=== PATIENT | male | born 1965 | race Caucasian/White ===

== ENCOUNTER 2016-07-06 11:07 | Emergency (ER) | payer BC ==
[~2016-07-06] VITALS: Ht 177.8 cm; Wt 108.9 kg
[~2016-07-06 11:07] MED LIST: CEPH-507 PO; HUM10VIA2; IBUPROFEN PRN; MULT1TAB63
--- NOTE | 2016-07-06 11:18 | ED Chest Pain ---
General Stated Complaint: RAPID HEART RATE Source: patient Exam Limitations: no limitations History of Present Illness Time seen by provider: 11:16 Initial Comments To ER with rapid heart rate. He was sent here from urgent care. States that this began about 25 minutes ago when he bent over and stood up quickly. He has a history of SVT years ago and was admitted seem by Dr. Montes. Told that it may or may not happen again. This is his first recurrent episode. States his blood sugar was high today in the 360 range she is a diabetic but this is unusual for him. He took 5 baby aspirin at home prior to arrival. Timing/Duration: intermittent Severity/Quality: moderate Location: central Radiation: no radiation Prior CP/Workup: no prior chest pain ASA po DEVELOPMENT VICE PRESIDENT: Yes NTG SL DEVELOPMENT VICE PRESIDENT: No Allergies and Home Medications Allergies Coded Allergies: No Known Drug Allergies (Verified Allergy, Unknown, 01/05/07) Home Medications Insulin Aspart 300 Units/3 Ml Solution, #30 (Reported) Insulin Glargine,Hum.rec.anlog 100 Unit/1 Ml Insuln.pen, #15 (Reported) Review of Systems Constitutional: see HPI EENTM: No Symptoms Reported Respiratory: See HPI, Shortness of Air Cardiovascular: See HPI, Denies Chest Pain, Palpitations Gastrointestinal: No Symptoms Reported Genitourinary: No Symptoms Reported Musculoskeletal: no symptoms reported Skin: no symptoms reported Psychiatric/Neurological: No Symptoms Reported Endocrine: No Symptoms Reported Past Dwgkrgq-Lfnxxy-Clltcs Hx Immunizations Up To Date Tetanus Booster (TDap): More than 5yrs Surgeries HX Surgeries: Yes Surgeries: Adenoidectomy, Orthopedic, Tonsillectomy Respiratory Hx Respiratory Disorders: No Cardiovascular Hx Cardiac Disorders: No Neurological Hx Neurological Disorders: No Reproductive System Hx Reproductive Disorders: No Genitourinary Hx Genitourinary Disorders: No Gastrointestinal Hx Gastrointestinal Disorders: No Endocrine Hx Endocrine Disorders: Yes Endocrine Disorders: Diabetes, Insulin dep HEENT HX ENT Disorders: No Psychosocial Hx Psychiatric Problems: No Blood Transfusions Hx Blood Disorders: No Family Medical History Significant Family History: No Pertinent Family Hx Physical Exam Vital Signs Vital Sign - Last 12Hours 07/06/16 07/06/16 11:18 11:22 Temp 98.2 Pulse 93 Resp 18 B/P (MAP) 116/83 Pulse Ox 95 O2 Delivery Nasal Cannula O2 Flow Rate 2.00 Capillary Refill : General Appearance: No Apparent Distress, WD/WN HEENT: PERRL/EOMI, TMs Normal Respiratory: Normal Breath Sounds, No Accessory Muscle Use, No Respiratory Distress Cardiovascular: Normal Peripheral Pulses, Tachycardia (Initial heart rate 200. Given 6 mg of adenosine and slowed to sinus tach 110-120.) Gastrointestinal: Normal Bowel Sounds, Non Tender, Soft Extremity: Normal Capillary Refill, Normal Inspection Neurologic/Psychiatric: Alert, Oriented x3 Skin: Normal Color, Warm/Dry Progress/Results/Core Measures Results/Orders Lab Results Laboratory Tests Test 07/06/16 11:15 07/06/16 12:05 Range/Units White Blood Count 6.7 4.3-11.0 10^3/uL Red Blood Count 4.85 4.35-5.85 10^6/uL Hemoglobin 14.2 13.3-17.7 G/DL Hematocrit 42 40-54 % Mean Corpuscular Volume 87 80-99 FL Mean Corpuscular Hemoglobin 29 25-34 PG Mean Corpuscular Hemoglobin Concent 34 32-36 G/DL Red Cell Distribution Width 13.2 10.0-14.5 % Platelet Count 239 130-400 10^3/uL Mean Platelet Volume 10.7 H 7.4-10.4 FL Neutrophils (%) (Auto) 65 42-75 % Lymphocytes (%) (Auto) 26 12-44 % Monocytes (%) (Auto) 7 0-12 % Eosinophils (%) (Auto) 2 0-10 % Basophils (%) (Auto) 1 0-10 % Neutrophils # (Auto) 4.3 1.8-7.8 X 10^3 Lymphocytes # (Auto) 1.7 1.0-4.0 X 10^3 Monocytes # (Auto) 0.5 0.0-1.0 X 10^3 Eosinophils # (Auto) 0.1 0.0-0.3 10^3/uL Basophils # (Auto) 0.1 0.0-0.1 10^3/uL Prothrombin Time 12.4 12.2-14.7 SEC INR Comment 1.0 0.8-1.4 Activated Partial Thromboplast Time 27 24-35 SEC Sodium Level 135 135-145 MMOL/L Potassium Level 4.0 3.6-5.0 MMOL/L Chloride Level 102 98-107 MMOL/L Carbon Dioxide Level 24 21-32 MMOL/L Anion Gap 9 5-14 MMOL/L Blood Urea Nitrogen 12 7-18 MG/DL Creatinine 1.27 0.60-1.30 MG/DL Estimat Glomerular Filtration Rate 60 BUN/Creatinine Ratio 9 Glucose Level 436 *H 70-105 MG/DL Calcium Level 8.7 8.5-10.1 MG/DL Magnesium Level 2.2 1.8-2.4 MG/DL Total Bilirubin 0.6 0.1-1.0 MG/DL Aspartate Amino Transf (AST/SGOT) 18 5-34 U/L Alanine Aminotransferase (ALT/SGPT) 15 0-55 U/L Alkaline Phosphatase 47 40-136 U/L Myoglobin 61.3 10.0-92.0 NG/ML Troponin I < 0.30 <0.30 NG/ML Total Protein 6.6 6.4-8.2 G/DL Albumin 4.0 3.2-4.5 G/DL Glucometer 322 H 70-110 MG/DL My Orders Orders - RADHA GREEN APRN Cbc With Automated Diff (07/06/16 11:16) Magnesium (07/06/16 11:16) Chest 1 View, Ap/Pa Only (07/06/16 11:16) Ekg Tracing (07/06/16 11:16) Cardiac Profile 1 (07/06/16 11:16) Comprehensive Metabolic Panel (07/06/16 11:16) Myoglobin Serum (07/06/16 11:16) Protime With Inr (07/06/16 11:16) Partial Thromboplastin Time (07/06/16 11:16) O2 (07/06/16 11:16) Monitor-Rhythm Ecg Trace Only (07/06/16 11:16) Lipid Panel (07/07/16 06:00) Saline Lock/Iv-Start (07/06/16 11:16) Adenosine Injection (Adenocard Injection (07/06/16 11:30) Ns Iv 1000 Ml (Sodium Chloride 0.9%) (07/06/16 11:30) Accucheck Stat ONCE (07/06/16 12:03) Medications Given in ED Current Medications Medications Dose Ordered Sig/Kyaw Route Start Time Stop Time Status Last Admin Dose Admin Adenosine 6 mg ONCE ONCE IV 07/06/16 11:30 07/06/16 11:31 DC 07/06/16 11:10 6 MG Vital Signs/I&O Vital Sign - Last 12Hours 07/06/16 07/06/16 11:18 11:22 Temp 98.2 Pulse 93 Resp 18 B/P (MAP) 116/83 Pulse Ox 95 98 O2 Delivery Nasal Cannula O2 Flow Rate 2.00 Departure Communication Progress Notes 1230-sent the EKG telephonically to Dr. Rodriguez and follow-up in the outpatient setting next week. Patient states that he feels much better at this time, heart rate remains in the 90s sinus. Blood pressure adequate. We will discharged home. Impression Impression: Primary Impression: SVT (supraventricular tachycardia) Disposition: HOME, SELF-CARE Condition: Stable Departure-Patient Inst. Decision time for Depature: 12:29 Referrals: Michael RODRIGUEZ MD, FLOYD R MD (PCP/Family) Primary Care Physician Patient Instructions: Supraventricular Tachycardia (SVT) Add. Discharge Instructions: 1. Return to ER for any recurrent symptoms 2. Keep tight control of your blood sugars trying to keep him below 200 3. Follow-up with Dr. Rodriguez next week. Call either today or on Saturday to make an appointment to be seen. I faxed your visit information to his office. Copy Copies To 1: Michael RODRIGUEZ MD, PETER J APRN July 06, 2016 11:18
[2016-07-06] MEDS ORDERED: INSU100I10 (11:22)
[2016-07-06] MEDS ORDERED: INSU100I14 (11:22)
[2016-07-06] MEDS ORDERED: ADENOSINE 6 MG/2 ML (ADENOCARD) VIAL IV ONE (11:30)
[2016-07-06] MEDS ORDERED: NS IV 1000 ML 1,000 ML IV SCH (11:30)
[2016-07-06 11:33] LABS: BASOPHILS # (AUTO) 0.1 10^3/uL (0.0-0.1); BASOPHILS % (AUTO) 1 % (0-10); EOSINOPHILS # (AUTO) 0.1 10^3/uL (0.0-0.3); EOSINOPHILS % (AUTO) 2 % (0-10); LYMPHOCYTES # (AUTO) 1.7 X 10^3 (1.0-4.0); LYMPHOCYTES % (AUTO) 26 % (12-44); MEAN CORPUSCULAR HEMOGLOBIN 29 PG (25-34); MEAN CORPUSCULAR HGB CONC 34 G/DL (32-36); MEAN CORPUSCULAR VOLUME 87 FL (80-99); MEAN PLATELET VOLUME 10.7 FL (7.4-10.4); MONOCYTES # (AUTO) 0.5 X 10^3 (0.0-1.0); MONOCYTES % (AUTO) 7 % (0-12); NEUTROPHILS # (AUTO) 4.3 X 10^3 (1.8-7.8); NEUTROPHILS % (AUTO) 65 % (42-75); PLATELET COUNT 239 10^3/uL (130-400); RED BLOOD COUNT 4.85 10^6/uL (4.35-5.85); RED CELL DISTRIBUTION WIDTH 13.2 % (10.0-14.5); WHITE BLOOD COUNT 6.7 10^3/uL (4.3-11.0)
--- NOTE | 2016-07-06 11:35 | Diagnostic Imaging Report ---
INDICATION: Tachycardia. Portable chest 11:24 AM. Heart size and pulmonary vascularity are normal. Lungs are clear. There are no effusions or pneumothoraces. IMPRESSION: Negative chest. Dictated by: Dictated on workstation # [id number]
[2016-07-06 11:43] LABS: PROTHROMBIN TIME PATIENT 12.4 SEC (12.2-14.7)
[2016-07-06 11:55] LABS: ALANINE AMINOTRANSFERASE 15 U/L (0-55); ANION GAP 9 MMOL/L (5-14); ASPARTATE AMINO TRANSFERASE 18 U/L (5-34); BILIRUBIN,TOTAL 0.6 MG/DL (0.1-1.0); BLOOD UREA NITROGEN 12 MG/DL (7-18); BUN/CREATININE RATIO 9; CALCIUM 8.7 MG/DL (8.5-10.1); CARBON DIOXIDE 24 MMOL/L (21-32); CHLORIDE 102 MMOL/L (98-107); CREATININE SERUM 1.27 MG/DL (0.60-1.30); GFR ESTIMATED 60; MAGNESIUM 2.2 MG/DL (1.8-2.4); SODIUM 135 MMOL/L (135-145); TOTAL PROTEIN 6.6 G/DL (6.4-8.2)
[2016-07-06 12:03] LABS: GLUCOSE 436 MG/DL (70-105)
[2016-07-06 12:04] LABS: MYOGLOBIN SERUM 61.3 NG/ML (10.0-92.0)
[2016-07-06 12:33] VITALS: BP 124/85
== END 2016-07-06 12:37 | disposition home or self-care (01) ==
LOC: EDUNIT# 11:07 → ER 11:10
DX: I47.1 Supraventricular tachycardia (principal); E11.65 Type 2 diabetes mellitus with hyperglycemia; Z79.4 Long term (current) use of insulin
CPT/HCPCS: 36415; 71010; 80053; 82962; 83735; 83874; 84484; 85025; 85610; 85730; 93005; 93041; 96361; 96374

== ENCOUNTER → 2016-07-27 | Outpatient (CLI) | payer BC ==
[~2016-07-27] MED LIST changes: +INSU100I10; +INSU100I14
== END ==
LOC: CARD 08:55
PROVIDERS: ATTEND Internal Medicine Interventional Cardiology
DX: I47.1 Supraventricular tachycardia (principal); E11.9 Type 2 diabetes mellitus without complications; R06.02 Shortness of breath

== ENCOUNTER 2016-08-30 00:19 | Emergency (ER) | payer BC ==
[~2016-08-30] VITALS: Ht 177.8 cm; Wt 102.1 kg
[~2016-08-30 00:19] MED LIST changes: +LACTATED RINGERS 1,000 ML IV ONE
[2016-08-30] MEDS ORDERED: LACTATED RINGERS 1,000 ML IV ONE (00:28)
--- NOTE | 2016-08-30 00:39 | ED General ---
General Chief Complaint: Glucose Problems Stated Complaint: HYPOGLYCEMIA Source of Information: Patient Exam Limitations: No Limitations History of Present Illness Time Seen by Provider: 00:20 Initial Comments Here with report of low blood sugar at home tonight. Apparently he was having altered mentation and EMS was called. noted that his blood sugar was 30. On EMS arrival it was 24. IV is established by EMS and one amp of D50 was given. He did get a little better. He was able to eat at home but was still a little off with respect to mentation and patient was brought to the ER. He is doing much better currently. Blood sugar apparently had been up as high as 200s but was 110 on EMS arrival and 81 on our check here. Patient denies any recent illness. 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 States he was riding a tractor most of the time. Does state that he drank water and iced tea. He did eat tonight. He used his normal dosing of Lantus at 22 units in the evening. Usually has good control of his blood sugars and has not had an incident where he had blood sugar this low previously. He has been on insulin for 12 years. Timing/Duration: 1-3 Hours Severity: Moderate Modifying Factors: improves with Eating, improves with Medication Associated Systoms: No Chest Pain, No Fever/Chills, No Nausea/Vomiting, No Shortness of Air Allergies and Home Medications Allergies Coded Allergies: No Known Drug Allergies (Verified , 08/30/16) Home Medications Insulin Aspart 300 Units/3 Ml Solution, #30 (Reported) Insulin Glargine,Hum.rec.anlog 100 Unit/1 Ml Insuln.pen, #15 (Reported) Constitutional: see HPI, No chills, diaphoresis (with incident), No fever, weakness (with incident) EENTM: no symptoms reported Respiratory: no symptoms reported Cardiovascular: no symptoms reported Gastrointestinal: no symptoms reported, No nausea, No vomiting Genitourinary: no symptoms reported Musculoskeletal: muscle pain, muscle cramps (right leg) Skin: no symptoms reported Psychiatric/Neurological: See HPI All Other Systems Reviewed Negative Unless Noted: Yes Past Rbskrbc-Xxcckq-Rdmxca Hx Patient Social History Alcohol Use: Denies Use Recreational Drug Use: No Smoking Status: Never a Smoker Recent Foreign Travel: No Contact w/Someone Who Travel: No Recent Hopitalizations: No Immunizations Up To Date Tetanus Booster (TDap): More than 5yrs Surgeries HX Surgeries: Yes Surgeries: Adenoidectomy, Orthopedic, Tonsillectomy Respiratory Hx Respiratory Disorders: No Cardiovascular Hx Cardiac Disorders: No Neurological Hx Neurological Disorders: No Reproductive System Hx Reproductive Disorders: No Genitourinary Hx Genitourinary Disorders: No Gastrointestinal Hx Gastrointestinal Disorders: No Endocrine Hx Endocrine Disorders: Yes Endocrine Disorders: Diabetes, Insulin dep HEENT HX ENT Disorders: No Psychosocial Hx Psychiatric Problems: No Blood Transfusions Hx Blood Disorders: No Reviewed Nursing Assessment Reviewed/Agree w Nursing PMH: Yes Family Medical History Significant Family History: No Pertinent Family Hx Physical Exam Vital Signs Vital Sign - Last 12Hours 08/30/16 00:38 Temp 97.4 Pulse 89 Resp 14 B/P (MAP) 151/89 Pulse Ox 96 O2 Delivery Room Air Capillary Refill : General Appearance: No Apparent Distress, WD/WN HEENT: PERRL/EOMI, Pharynx Normal Neck: Non Tender, Supple Respiratory: Lungs Clear, Normal Breath Sounds Cardiovascular: Regular Rate, Rhythm, No Murmur Gastrointestinal: Non Tender, Soft Extremity: Non Tender, No Calf Tenderness Neurologic/Psychiatric: Alert, Oriented x3, No Motor/Sensory Deficits Skin: Normal Color, Warm/Dry Progress/Results/Core Measures Results/Orders Lab Results My Orders Medications Given in ED Vital Signs/I&O Progress Note : Progress Note Seen and evaluated. IV by EMS. Labs ordered. LR 1 L bolus. Patient given milk and food as blood sugar was 81 here. Monitor patient. 0120: Blood sugar 121 and he is feeling much better. Fluids are continuing. Labs would indicate that there is dehydration involved. 0144: Blood sugar 131. Patient improved. Discharged home with return precautions. Patient verbalize understanding instructions and agreement with plan. Departure Impression Impression: Primary Impression: Hypoglycemia associated with diabetes Additional Impression: Dehydration Disposition: 01 HOME, SELF-CARE Condition: Improved Departure-Patient Inst. Decision time for Depature: 01:29 Referrals: ALTHEA BECK MD (PCP/Family) Primary Care Physician Patient Instructions: Dehydration, Adult (DC), HYPOGLYCEMIA Add. Discharge Instructions: All discharge instructions reviewed with patient and/or family. Voiced understanding. Monitor your glucose closely today. Eat a normal diet. Drink plenty of fluids. Get some rest. Avoid the heat. Follow-up with your Dr. in a few days for recheck. Return for worse pain, fever, vomiting, weakness, breathing problems or other concerns as needed. JAE ANDRES MD Aug 30, 2016 00:39
[2016-08-30 00:40] LABS: BASOPHILS % (AUTO) 1 % (0-10); EOSINOPHILS # (AUTO) 0.3 10^3/uL (0.0-0.3); EOSINOPHILS % (AUTO) 4 % (0-10); LYMPHOCYTES % (AUTO) 25 % (12-44); MEAN CORPUSCULAR HEMOGLOBIN 29 PG (25-34); MEAN CORPUSCULAR HGB CONC 33 G/DL (32-36); MEAN CORPUSCULAR VOLUME 88 FL (80-99); MEAN PLATELET VOLUME 10.3 FL (7.4-10.4); MONOCYTES # (AUTO) 0.5 X 10^3 (0.0-1.0); MONOCYTES % (AUTO) 6 % (0-12); NEUTROPHILS % (AUTO) 65 % (42-75); PLATELET COUNT 235 10^3/uL (130-400); RED BLOOD COUNT 4.75 10^6/uL (4.35-5.85); RED CELL DISTRIBUTION WIDTH 13.1 % (10.0-14.5); WHITE BLOOD COUNT 7.7 10^3/uL (4.3-11.0)
[2016-08-30 01:00] LABS: ALANINE AMINOTRANSFERASE 14 U/L (0-55); ALBUMIN 4.2 GM/DL (3.2-4.5); ANION GAP 13 MMOL/L (5-14); ASPARTATE AMINO TRANSFERASE 20 U/L (5-34); BILIRUBIN,TOTAL 0.5 MG/DL (0.1-1.0); BLOOD UREA NITROGEN 20 MG/DL (7-18); BUN/CREATININE RATIO 19; CALCIUM 9.6 MG/DL (8.5-10.1); CARBON DIOXIDE 24 MMOL/L (21-32); CHLORIDE 109 MMOL/L (98-107); CREATININE SERUM 1.06 MG/DL (0.60-1.30); GFR ESTIMATED > 60; GLUCOSE 61 MG/DL (70-105); POTASSIUM 3.5 MMOL/L (3.6-5.0); SODIUM 146 MMOL/L (135-145)
[2016-08-30 01:54] VITALS: BP 125/80
== END 2016-08-30 01:57 | disposition home or self-care (01) ==
LOC: EDUNIT# 00:19 → ER 00:22
DX: E11.641 Type 2 diabetes mellitus with hypoglycemia with coma (principal); E86.0 Dehydration; Z90.89 Acquired absence of other organs; Z79.84 Long term (current) use of oral hypoglycemic drugs
CPT/HCPCS: 36415; 80053; 82962; 85025; 96360

== ENCOUNTER 2016-11-08 10:55 | Outpatient (CLI) | payer BC ==
[~2016-11-08 10:55] MED LIST changes: -LACTATED RINGERS 1,000 ML IV ONE
== END 2016-11-08 11:15 | disposition home or self-care (01) ==
LOC: SLEEP 10:55
PROVIDERS: ATTEND Otolaryngology Otolaryngology/Facial Plastic Surgery
DX: G47.10 Hypersomnia, unspecified (principal); R06.83 Snoring

== ENCOUNTER 2018-05-15 08:33 | Emergency (ER) | payer BC ==
[~2018-05-15] VITALS: Ht 177.8 cm; Wt 108.0 kg
--- OUTSIDE RECORDS SUMMARY | 2018-05-15 08:38 | XMS REPORT | Continuity of Care Document ---
Author Author [facility] Organization [facility] Address Unknown Phone Unavailable Allergies Active Description Code Type Severity Reaction Onset Reported/Identified Relationship to Patient Clinical Status Yes No Known Drug Allergies [id number] Drug Allergy Unknown N/A 08/30/2016 Medications There is no data. Problems Date Dx Coded Attending Type Code Diagnosis Diagnosed By 01/25/2015 CARIDAD SHETTY Ot S01.01XA LACERATION WITHOUT FOREIGN BODY OF SCALP 01/25/2015 CARIDAD SHETTY Ot W45.8XXA OTH FOREIGN BODY OR OBJECT ENTERING THRO 01/25/2015 CARIDAD SHETTY Ot Y92.[address] IN SINGLE-FAMILY (PRIVATE) HO 01/25/2015 CARIDAD SHETTY Ot Y99.8 OTHER EXTERNAL CAUSE STATUS 01/25/2015 CARIDAD SHETTY Ot Z23 ENCOUNTER FOR IMMUNIZATION 02/01/2015 HEATHER LUNA, CHARITY Ramos Ot S01.01XD LACERATION WITHOUT FOREIGN BODY OF SCALP 07/06/2016 RADHA GREEN APRN Ot E11.65 TYPE 2 DIABETES MELLITUS WITH HYPERGLYCE 07/06/2016 RADHA GREEN APRN Ot I47.1 SUPRAVENTRICULAR TACHYCARDIA 07/06/2016 RADHA GREEN APRN Ot R00.0 TACHYCARDIA, UNSPECIFIED 07/06/2016 RADHA GREEN APRN Ot Z79.4 LONGTERM (CURRENT) USE OF INSULIN 08/24/2016 Michael RODRIGUEZ MD Ot E11.9 TYPE 2 DIABETES MELLITUS WITHOUT COMPLIC 08/24/2016 Michael RODRIGUEZ MD Ot I47.1 SUPRAVENTRICULAR TACHYCARDIA 08/24/2016 Michael RODRIGUEZ MD Ot R06.02 SHORTNESS OF BREATH 08/30/2016 Michael RODRIGUEZ MD Ot E11.9 TYPE 2 DIABETES MELLITUS WITHOUT COMPLIC 08/30/2016 Michael RODRIGUEZ MD Ot I47.1 SUPRAVENTRICULAR TACHYCARDIA 08/30/2016 Michael RODRIGUEZ MD Ot R06.02 SHORTNESS OF BREATH 08/30/2016 JAE ANDRES MD, Ot E11.641 TYPE 2 DIABETES MELLITUS WITH HYPOGLYCEM 08/30/2016 JAE ANDRES MD Ot E86.0 DEHYDRATION 08/30/2016 JAE ANDRES MD Ot R73.09 OTHER ABNORMAL GLUCOSE 08/30/2016 JAE ANDRES MD Ot Z79.84 LONGTERM (CURRENT) USE OF ORAL HYPOGLYC 08/30/2016 JAE ANDRES MD Ot Z90.89 ACQUIRED ABSENCE OF OTHER ORGANS 09/03/2016 JAE ANDRES MD, Ot E11.641 TYPE 2 DIABETES MELLITUS WITH HYPOGLYCEM 09/03/2016 JAE ANDRES MD Ot E86.0 DEHYDRATION 09/03/2016 JAE ANDRES MD Ot R73.09 OTHER ABNORMAL GLUCOSE 09/03/2016 JAE ANDRES MD Ot Z79.84 LONGTERM (CURRENT) USE OF ORAL HYPOGLYC 09/03/2016 JAE ANDRES MD Ot Z90.89 ACQUIRED ABSENCE OF OTHER ORGANS 10/26/2016 Michael RODRIGUEZ MD Ot E11.9 TYPE 2 DIABETES MELLITUS WITHOUT COMPLIC 10/26/2016 Michael RODRIGUEZ MD Ot I47.1 SUPRAVENTRICULAR TACHYCARDIA 10/26/2016 Michael RODRIGUEZ MD Ot R06.02 SHORTNESS OF BREATH 11/08/2016 JEWELS ANGULO MD P Ot G47.10 HYPERSOMNIA, UNSPECIFIED 11/08/2016 JEWELS ANGULO MD P Ot R06.83 SNORING 11/09/2016 JEWELS ANGULO MD P Ot G47.10 HYPERSOMNIA, UNSPECIFIED 11/09/2016 JEWELS ANGULO MD P Ot R06.83 SNORING 07/15/2017 Michael RODRIGUEZ MD Ot E11.9 TYPE 2 DIABETES MELLITUS WITHOUT COMPLIC 07/15/2017 Michael RODRIGUEZ MD Ot I47.1 SUPRAVENTRICULAR TACHYCARDIA 07/15/2017 Michael RODRIGUEZ MD Ot R06.02 SHORTNESS OF BREATH 03/10/2018 Michael RODRIGUEZ MD Ot E11.9 TYPE 2 DIABETES MELLITUS WITHOUT COMPLIC 03/10/2018 Michael RODRIGUEZ MD Ot I47.1 SUPRAVENTRICULAR TACHYCARDIA 03/10/2018 MICHAEL LUNA, Michael SCHULER Ot R06.02 SHORTNESS OF BREATH Procedures There is no data. Results Test Result Range Complete blood count (CBC) with automated white blood cell (WBC) differential - 07/06/16 11:15 Blood leukocytes automated count (number/volume) 6.7 10*3/uL 4.3-11.0 Blood erythrocytes automated count (number/volume) 4.85 10*6/uL 4.35-5.85 Venous blood hemoglobin measurement (mass/volume) 14.2 g/dL 13.3-17.7 Blood hematocrit (volume fraction) 42 % 40-54 Automated erythrocyte mean corpuscular volume 87 [foz_us] 80-99 Automated erythrocyte mean corpuscular hemoglobin (mass per erythrocyte) 29 pg 25-34 Automated erythrocyte mean corpuscular hemoglobin concentration measurement ( mass/volume) 34 g/dL 32-36 Automated erythrocyte distribution width ratio 13.2 % 10.0-14.5 Automated blood platelet count (count/volume) 239 10*3/uL 130-400 Automated blood platelet mean volume measurement 10.7 [foz_us] 7.4-10.4 Automated blood neutrophils/100 leukocytes 65 % 42-75 Automated blood lymphocytes/100 leukocytes 26 % 12-44 Blood monocytes/100 leukocytes 7 % 0-12 Automated blood eosinophils/100 leukocytes 2 % 0-10 Automated blood basophils/100 leukocytes 1 % 0-10 Blood neutrophils automated count (number/volume) 4.3 10*3 1.8-7.8 Blood lymphocytes automated count (number/volume) 1.7 10*3 1.0-4.0 Blood monocytes automated count (number/volume) 0.5 10*3 0.0-1.0 Automated eosinophil count 0.1 10*3/uL 0.0-0.3 Automated blood basophil count (count/volume) 0.1 10*3/uL 0.0-0.1 PT panel in platelet poor plasma by coagulation assay - 07/06/16 11:15 Prothrombin time (PT) in platelet poor plasma by coagulation assay 12.4 s 12.2-14.7 INR in platelet poor plasma or blood by coagulation assay 1.0 0.8-1.4 Activated partial thromboplastin time (aPTT) in platelet poor plasma bycoagulation assay - 07/06/16 11:15 Activated partial thromboplastin time (aPTT) in platelet poor plasma bycoagulation assay 27 s 24-35 Comprehensive metabolic panel - 07/06/16 11:15 Serum or plasma sodium measurement (moles/volume) 135 mmol/L 135-145 Serum or plasma potassium measurement (moles/volume) 4.0 mmol/L 3.6-5.0 Serum or plasma chloride measurement (moles/volume) 102 mmol/L 98-107 Carbon dioxide 24 mmol/L 21-32 Serum or plasma anion gap determination (moles/volume) 9 mmol/L 5-14 Serum or plasma urea nitrogen measurement (mass/volume) 12 mg/dL 7-18 Serum or plasma creatinine measurement (mass/volume) 1.27 mg/dL 0.60-1.30 Serum or plasma urea nitrogen/creatinine mass ratio 9 NRG Serum or plasma creatinine measurement with calculation of estimated glomerular filtration rate 60 NRG Serum or plasma glucose measurement (mass/volume) 436 mg/dL 70-105 Serum or plasma calcium measurement (mass/volume) 8.7 mg/dL 8.5-10.1 Serum or plasma total bilirubin measurement (mass/volume) 0.6 mg/dL 0.1-1.0 Serum or plasma alkaline phosphatase measurement (enzymatic activity/volume) 47 U/L 40-136 Serum or plasma aspartate aminotransferase measurement (enzymatic activity/ volume) 18 U/L 5-34 Serum or plasma alanine aminotransferase measurement (enzymatic activity/volume ) 15 U/L 0-55 Serum or plasma protein measurement (mass/volume) 6.6 g/dL 6.4-8.2 Serum or plasma albumin measurement (mass/volume) 4.0 g/dL 3.2-4.5 Magnesium - 07/06/16 11:15 Magnesium 2.2 mg/dL 1.8-2.4 Serum or plasma troponin i.cardiac measurement (mass/volume) - 07/06/16 11:15 Serum or plasma troponin i.cardiac measurement (mass/volume) < ng/ mL <0.30 Myoglobin, serum - 07/06/16 11:15 Myoglobin, serum 61.3 ng/mL 10.0-92.0 Capillary blood glucose measurement by glucometer (mass/volume) - 07/06/16 12: 05 Capillary blood glucose measurement by glucometer (mass/volume) 322 mg/dL 70-110 Capillary blood glucose measurement by glucometer (mass/volume) - 08/30/16 00: 28 Capillary blood glucose measurement by glucometer (mass/volume) 81 mg/dL 70-110 Complete blood count (CBC) with automated white blood cell (WBC) differential - 08/30/16 00:31 Blood leukocytes automated count (number/volume) 7.7 10*3/uL 4.3-11.0 Blood erythrocytes automated count (number/volume) 4.75 10*6/uL 4.35-5.85 Venous blood hemoglobin measurement (mass/volume) 13.9 g/dL 13.3-17.7 Blood hematocrit (volume fraction) 42 % 40-54 Automated erythrocyte mean corpuscular volume 88 [foz_us] 80-99 Automated erythrocyte mean corpuscular hemoglobin (mass per erythrocyte) 29 pg 25-34 Automated erythrocyte mean corpuscular hemoglobin concentration measurement ( mass/volume) 33 g/dL 32-36 Automated erythrocyte distribution width ratio 13.1 % 10.0-14.5 Automated blood platelet count (count/volume) 235 10*3/uL 130-400 Automated blood platelet mean volume measurement 10.3 [foz_us] 7.4-10.4 Automated blood neutrophils/100 leukocytes 65 % 42-75 Automated blood lymphocytes/100 leukocytes 25 % 12-44 Blood monocytes/100 leukocytes 6 % 0-12 Automated blood eosinophils/100 leukocytes 4 % 0-10 Automated blood basophils/100 leukocytes 1 % 0-10 Blood neutrophils automated count (number/volume) 5.0 10*3 1.8-7.8 Blood lymphocytes automated count (number/volume) 2.0 10*3 1.0-4.0 Blood monocytes automated count (number/volume) 0.5 10*3 0.0-1.0 Automated eosinophil count 0.3 10*3/uL 0.0-0.3 Automated blood basophil count (count/volume) 0.0 10*3/uL 0.0-0.1 Comprehensive metabolic panel - 08/30/16 00:31 Serum or plasma sodium measurement (moles/volume) 146 mmol/L 135-145 Serum or plasma potassium measurement (moles/volume) 3.5 mmol/L 3.6-5.0 Serum or plasma chloride measurement (moles/volume) 109 mmol/L 98-107 Carbon dioxide 24 mmol/L 21-32 Serum or plasma anion gap determination (moles/volume) 13 mmol/L 5-14 Serum or plasma urea nitrogen measurement (mass/volume) 20 mg/dL 7-18 Serum or plasma creatinine measurement (mass/volume) 1.06 mg/dL 0.60-1.30 Serum or plasma urea nitrogen/creatinine mass ratio 19 NRG Serum or plasma creatinine measurement with calculation of estimated glomerular filtration rate > NRG Serum or plasma glucose measurement (mass/volume) 61 mg/dL 70-105 Serum or plasma calcium measurement (mass/volume) 9.6 mg/dL 8.5-10.1 Serum or plasma total bilirubin measurement (mass/volume) 0.5 mg/dL 0.1-1.0 Serum or plasma alkaline phosphatase measurement (enzymatic activity/volume) 51 U/L 40-136 Serum or plasma aspartate aminotransferase measurement (enzymatic activity/ volume) 20 U/L 5-34 Serum or plasma alanine aminotransferase measurement (enzymatic activity/volume ) 14 U/L 0-55 Serum or plasma protein measurement (mass/volume) 7.0 g/dL 6.4-8.2 Serum or plasma albumin measurement (mass/volume) 4.2 g/dL 3.2-4.5 Capillary blood glucose measurement by glucometer (mass/volume) - 08/30/16 01: 08 Capillary blood glucose measurement by glucometer (mass/volume) 127 mg/dL 70-110 Capillary blood glucose measurement by glucometer (mass/volume) - 08/30/16 01: 44 Capillary blood glucose measurement by glucometer (mass/volume) 133 mg/dL 70-110 Encounters ACCT No. Visit Date/Time Discharge Status Pt. Type Provider Facility Loc./Unit Complaint [id number] 11/08/2016 10:55:00 11/08/2016 11:15:00 DIS Outpatient KEV LUNA, JEWELS Bernardo [facility] SLEEP OBSERVED APNEA, SNORING , EDS [id number] 08/30/2016 00:22:00 08/30/2016 01:57:00 DIS Emergency DMITRY LUNA, JAE Okeefe [facility] ER HYPOGLYCEMIA [id number] 08/09/2016 10:00:00 08/09/2016 23:59:59 CLS Preadmit MICHAEL LUNA, Michael SCHULER [facility] CARD R06.02 SOB,DM [id number] 07/27/2016 08:55:00 07/27/2016 23:59:59 CLS Outpatient MICHAEL LUNA, Michael SCHULER [facility] CARD I47.1 PSVT [id number] 07/23/2016 16:00:00 07/23/2016 23:59:59 CLS Preadmit JEWELS ANGULO MD [facility] SLEEP OBSERVED APNEA, SNORING , EDS [id number] 07/06/2016 11:10:00 07/06/2016 12:37:00 DIS Emergency RADHA GREEN APRN [facility] ER RAPID HEART RATE [id number] 02/01/2015 09:43:00 02/01/2015 10:06:00 DIS Emergency CHARITY ROMERO MD [facility] ER SUTURE REMOVAL [id number] 01/25/2015 19:45:00 01/25/2015 21:31:00 DIS Emergency CARIDAD SHETTY [facility] ER HEAD LAC
--- OUTSIDE RECORDS SUMMARY | 2018-05-15 08:38 | XMS REPORT | Clinical Summary ---
Author Author [facility] Organization [facility] Address Unknown Phone Unavailable Care Team Providers Care Tanning Wheel Filler Name Role Phone Valdemar Lehman MD PCP Source Comments Some departments are not documenting in the electronic medical record. If you do not see the information that you expected, contact Release of Information in the Health Information Management department at [phone] for further assistance in locating additional records.[facility] Allergies No Known Allergies Medications End Date Status Medication Sig Dispensed Refills Start Date Active INSULIN ASPART (NOVOLOG Inject 1 0 SC)Indications: 1 unit Units under per 15 Carbs the skin. Indications: 1 unit per 15 Carbs Active INSULIN Inject 22 0 GLARGINE,HUM.REC.ANLOG Units under (LANTUS SC) the skin at bedtime daily. Active aspirin 81 mg chewable Chew 1 Tab by 90 Tab 3 tablet mouth daily. 7 Take with food. Active electrolyte GUT PEG Split dose 4000 mL 0 (NULYTELY, COLYTE, 7 GAVILYTE-N) 420 gram oral solution Active atorvastatin (LIPITOR) 10 Take 1 tablet 90 tablet 3 mg tablet by mouth 7 daily. 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 2. There is no evidence of accessory pathway conduction. 3. Normal AV tima conduction as well as sinus node recovery times. DM (diabetes mellitus) 08/10/2016 Social History Date Tobacco Use Types Packs/Day Years Used Never Smoker Sex Assigned at Date Recorded Not on file Industry Job Start Date Occupation Not on file Not on file Not on file Travel End Travel History Travel Start No recent travel history available. Last Filed Vital Signs Time Taken Vital Sign Reading 09/17/2016 11:29 AM CDT Blood Pressure 130/82 09/17/2016 11:29 AM CDT Pulse 63 08/14/2016 6:50 AM CDT Temperature 36.4 C (97.5 F) - Respiratory Rate - 08/14/2016 6:50 AM CDT Oxygen Saturation 99% - Inhaled Oxygen - Concentration 09/17/2016 11:29 AM CDT Weight 104.3 kg (230 lb) 09/17/2016 11:29 AM CDT Height 177.8 cm (5' 10") 09/17/2016 11:29 AM CDT Body Mass Index 33 Plan of Treatment Health Maintenance Due Date Last Done Comments HEPATITIS C SCREENING 1965 PHYSICAL (COMPREHENSIVE) 11/23/1970 EXAM HIV SCREENING 11/23/1978 DILATED EYE EXAM 11/23/1981 DTAP/TDAP VACCINES (1 - 11/23/1981 Tdap) FOOT EXAM 11/23/1981 HBA1C 11/23/1981 MICROALBUMIN 11/23/1981 PNEUMONIA VACCINE (DM) 11/23/1981 SHINGLES RECOMBINANT 11/23/2013 VACCINE (1 of 2) INFLUENZA VACCINE 09/11/2017 COLORECTAL CANCER 11/06/2026 11/06/2016 SCREENING Results Not on filefrom Last 3 Months Insurance Type Payer Benefit Subscriber ID Effective Phone Address Plan / Dates [facility] PREF CARE Present BLUE Advance Directives Patient has advance care planning documents, and code status on file. For more information, please contact: [facility] [address] [place] [address] Date Inactivated Comments Code Status Date Activated 08/14/2016 11:34 AM Full Code 08/13/2016 2:45 PM Provider has discussed Code Status No, more discussion w/Patient or Family? needed 08/13/2016 2:45 PM Full Code 08/13/2016 10:49 AM Provider has discussed Code Status No, more discussion w/Patient or Family? needed
[2018-05-15 09:01] LABS: BASOPHILS % (AUTO) 1 % (0-10); EOSINOPHILS # (AUTO) 0.2 10^3/uL (0.0-0.3); EOSINOPHILS % (AUTO) 3 % (0-10); HEMATOCRIT 43 % (40-54); HEMOGLOBIN 14.4 G/DL (13.3-17.7); LYMPHOCYTES # (AUTO) 1.2 X 10^3 (1.0-4.0); LYMPHOCYTES % (AUTO) 15 % (12-44); MEAN CORPUSCULAR HEMOGLOBIN 29 PG (25-34); MEAN CORPUSCULAR HGB CONC 34 G/DL (32-36); MEAN CORPUSCULAR VOLUME 87 FL (80-99); MEAN PLATELET VOLUME 10.5 FL (7.4-10.4); MONOCYTES # (AUTO) 0.5 X 10^3 (0.0-1.0); MONOCYTES % (AUTO) 6 % (0-12); NEUTROPHILS # (AUTO) 5.7 X 10^3 (1.8-7.8); NEUTROPHILS % (AUTO) 75 % (42-75); PLATELET COUNT 243 10^3/uL (130-400); RED CELL DISTRIBUTION WIDTH 12.9 % (10.0-14.5); WHITE BLOOD COUNT 7.6 10^3/uL (4.3-11.0)
[2018-05-15 09:13] LABS: ALANINE AMINOTRANSFERASE 17 U/L (0-55); ALBUMIN 4.3 GM/DL (3.2-4.5); ALKALINE PHOSPHATASE 62 U/L (40-136); BILIRUBIN,TOTAL 0.6 MG/DL (0.1-1.0); BUN/CREATININE RATIO 16; CALCIUM 9.7 MG/DL (8.5-10.1); CARBON DIOXIDE 26 MMOL/L (21-32); CHLORIDE 104 MMOL/L (98-107); CREATININE SERUM 0.99 MG/DL (0.60-1.30); GFR ESTIMATED > 60; GLUCOSE 216 MG/DL (70-105); POTASSIUM 4.4 MMOL/L (3.6-5.0); SODIUM 138 MMOL/L (135-145); TOTAL PROTEIN 6.9 GM/DL (6.4-8.2)
--- NOTE | 2018-05-15 09:13 | ED Chest Pain ---
General Chief Complaint: Chest Pain Stated Complaint: LEFT ARM NUMBNESS Nursing Triage Note: PT AMBULATED TO ROOM 6 PT CO OF L ARM PAIN AND NUMBNESS ABOVE ELBOW TO SHOULDER. STATES STARTED LAST PM ABOUT 1030. PT STATES WAS LAYING TILE LAST PM. DENIES SOA OR NAUSEA AT THIS X. PT ALSO HAS A COLD OR ALLERGIES AND IS COUGHING AND HAS STUFFY NOSE AND HOARSE VOICE Nursing Sepsis Screen: No Definite Risk Source: patient Exam Limitations: no limitations History of Present Illness Date Seen by Provider: May 15, 2018 Time Seen by Provider: 09:08 Initial Comments The patient is a 52-year-old white male known to me for 30 years or more. He presents today with complaints of left arm pain. He also has had hoarseness and a cough for several days. He is a type II insulin requiring diabetic. This diagnosis was made at about age 38. During the colder weather months he uses a pump but finds the warm weather months to be unsatisfactory as the sweating loosens the adhesive at his infusion site. He reports that last night he was grabbing tile and supported his body weight with his left hand while grabbing with the right. He has no prior history of coronary artery disease. About 2 years ago he had an ablation for SVT at the [facility] Timing/Duration: 24 hours Severity/Quality: mild, moderate Radiation: no radiation Prior CP/Workup: no prior chest pain Allergies and Home Medications Allergies Coded Allergies: No Known Drug Allergies (Verified , 08/30/16) Patient Home Medication List Home Medication List Reviewed: Yes Review of Systems Review of Systems Constitutional: see HPI EENTM: Nose Congestion, Other (postnasal drip hoarseness and cough) Respiratory: Cough Cardiovascular: See HPI Gastrointestinal: No Symptoms Reported Genitourinary: No Symptoms Reported Musculoskeletal: no symptoms reported Skin: no symptoms reported Psychiatric/Neurological: No Symptoms Reported Endocrine: No Symptoms Reported Hematologic/Lymphatic: No Symptoms Reported Past Vykoltl-Czkbbh-Qazusi Hx Patient Social History Alcohol Use: Denies Use Recreational Drug Use: No Smoking Status: Never a Smoker Recent Foreign Travel: No Contact w/Someone Who Travel: No Recent Infectious Disease Expo: No Recent Hopitalizations: No Immunizations Up To Date Tetanus Booster (TDap): More than 5yrs Past Medical History Surgeries: Yes (TONSILS ATE AGE 7, rotator cuff) Adenoidectomy, Orthopedic, Tonsillectomy Respiratory: Yes Sleep Apnea Cardiac: Yes (SVT, ablasion) Neurological: No Reproductive Disorders: No Genitourinary: No Gastrointestinal: No Musculoskeletal: No Endocrine: Yes Diabetes, Insulin dep HEENT: No Cancer: No Psychosocial: No Integumentary: No Blood Disorders: No Family Medical History No Pertinent Family Hx Physical Exam Vital Signs Vital Signs - First Documented 05/15/18 08:35 Temp 97.9 Pulse 86 Resp 18 B/P (MAP) 140/83 (102) Pulse Ox 99 Capillary Refill : Less Than 3 Seconds Height, Weight, BMI Height: 5'10.00" Weight: 238lbs. oz. 107.612717om; 33.00 BMI Method:Stated General Appearance: No Apparent Distress, WD/WN HEENT: Normal ENT Inspection Neck: Normal Inspection Respiratory: Chest Non Tender, Lungs Clear, Normal Breath Sounds, No Accessory Muscle Use, No Respiratory Distress Cardiovascular: Regular Rate, Rhythm, No Edema, No Gallop, No JVD, No Murmur, Normal Peripheral Pulses Gastrointestinal: Normal Bowel Sounds, No Organomegaly, No Pulsatile Mass Extremity: Normal Capillary Refill, Normal Inspection Neurologic/Psychiatric: Alert, Oriented x3, No Motor/Sensory Deficits, Normal Mood/Affect Skin: Normal Color, Warm/Dry Lymphatic: No Adenopathy Progress/Results/Core Measures Results/Orders Lab Results Laboratory Tests Test 05/15/18 08:40 Range/Units White Blood Count 7.6 4.3-11.0 10^3/uL Red Blood Count 4.91 4.35-5.85 10^6/uL Hemoglobin 14.4 13.3-17.7 G/DL Hematocrit 43 40-54 % Mean Corpuscular Volume 87 80-99 FL Mean Corpuscular Hemoglobin 29 25-34 PG Mean Corpuscular Hemoglobin Concent 34 32-36 G/DL Red Cell Distribution Width 12.9 10.0-14.5 % Platelet Count 243 130-400 10^3/uL Mean Platelet Volume 10.5 H 7.4-10.4 FL Neutrophils (%) (Auto) 75 42-75 % Lymphocytes (%) (Auto) 15 12-44 % Monocytes (%) (Auto) 6 0-12 % Eosinophils (%) (Auto) 3 0-10 % Basophils (%) (Auto) 1 0-10 % Neutrophils # (Auto) 5.7 1.8-7.8 X 10^3 Lymphocytes # (Auto) 1.2 1.0-4.0 X 10^3 Monocytes # (Auto) 0.5 0.0-1.0 X 10^3 Eosinophils # (Auto) 0.2 0.0-0.3 10^3/uL Basophils # (Auto) 0.0 0.0-0.1 10^3/uL Sodium Level 138 135-145 MMOL/L Potassium Level 4.4 3.6-5.0 MMOL/L Chloride Level 104 98-107 MMOL/L Carbon Dioxide Level 26 21-32 MMOL/L Anion Gap 8 5-14 MMOL/L Blood Urea Nitrogen 16 7-18 MG/DL Creatinine 0.99 0.60-1.30 MG/DL Estimat Glomerular Filtration Rate > 60 BUN/Creatinine Ratio 16 Glucose Level 216 H 70-105 MG/DL Calcium Level 9.7 8.5-10.1 MG/DL Corrected Calcium 9.5 8.5-10.1 MG/DL Total Bilirubin 0.6 0.1-1.0 MG/DL Aspartate Amino Transf (AST/SGOT) 17 5-34 U/L Alanine Aminotransferase (ALT/SGPT) 17 0-55 U/L Alkaline Phosphatase 62 40-136 U/L Troponin I < 0.028 <0.028 NG/ML Total Protein 6.9 6.4-8.2 GM/DL Albumin 4.3 3.2-4.5 GM/DL My Orders Orders - CARMEN VELIZ MD Cbc With Automated Diff (05/15/18 08:47) Comprehensive Metabolic Panel (05/15/18 08:47) Troponin I (05/15/18 08:47) Chest 1 View, Ap/Pa Only (05/15/18 08:47) Ekg Tracing (05/15/18 08:47) Ketorolac Injection (Toradol Injection) (05/15/18 09:41) Medications Given in ED Current Medications Medications Dose Ordered Sig/Kyaw Route Start Time Stop Time Status Last Admin Dose Admin Ketorolac Tromethamine 30 mg STK-MED ONCE .ROUTE 05/15/18 09:41 05/15/18 09:44 DC 05/15/18 09:45 30 MG Vital Signs/I&O 05/15/18 08:35 Temp 97.9 Pulse 86 Resp 18 B/P (MAP) 140/83 (102) Pulse Ox 99 Blood Pressure Mean: 102 Departure Communication (Admissions) Chest x-ray is normal. EKG is unremarkable. Troponin is normal. 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 Impression Primary Impression: musculoskeletal left arm pain. Disposition: HOME, SELF-CARE Condition: Stable/Unchanged Departure-Patient Inst. Decision time for Depature: 09:54 Referrals: ALTHEA BECK MD (PCP/Family) Primary Care Physician Patient Instructions: Chest Pain That Is Not Caused by the Heart (DC) Add. Discharge Instructions: All discharge instructions reviewed with patient and/or family. Voiced understanding. Use ibuprofen 600 mg 3 times daily until resolution of pain. CARMEN VELIZ MD May 15, 2018 09:13
--- NOTE | 2018-05-15 09:29 | Diagnostic Imaging Report ---
INDICATION: Left arm pain Frontal chest obtained at 9:08 AM and compared to 07/06/2016. Heart and mediastinal silhouette are normal in appearance. The lungs are clear. There is no pneumothorax or pleural fluid. IMPRESSION: Negative chest. Dictated by: Dictated on workstation # [id number]
[2018-05-15] MEDS ORDERED: KETOROLAC 30 MG/ML VIAL ONE (09:41)
[2018-05-15 10:06] VITALS: BP 136/80
== END 2018-05-15 10:06 | disposition home or self-care (01) ==
LOC: EDUNIT# 08:33 → ER 08:34
DX: M79.602 Pain in left arm (principal); M79.18 Myalgia, other site; E11.9 Type 2 diabetes mellitus without complications; G47.30 Sleep apnea, unspecified; Z79.4 Long term (current) use of insulin; Z90.89 Acquired absence of other organs
CPT/HCPCS: 36415; 71045; 80053; 84484; 85025; 93005

== ENCOUNTER 2020-09-08 12:11 | Outpatient (CLI) | payer BC ==
[~2020-09-08] VITALS: Ht 177.8 cm; Wt 106.8 kg
[2020-09-08 12:00] VITALS: BP 130/77
[2020-09-08] MEDS ORDERED: EPINEPHrine INJECTION 1 MG/ML AMP IM PRN (12:15)
[2020-09-08] MEDS ORDERED: CASIRIVIMAB/IMDEVIMAB 1,200 MG in NS (IVPB) 250 ML IV ONE (12:15)
[2020-09-08] MEDS ORDERED: diphenhydrAMINE 50 MG/ML INJ (BENADRYL) IV PRN (12:15)
[2020-09-08 13:45] VITALS: BP 133/75
== END 2020-09-08 14:15 ==
LOC: INFUSION 12:11
PROVIDERS: ATTEND Nurse Practitioner Family
DX: Z23 Encounter for immunization (principal); U07.1 COVID-19